=== PATIENT | male | born 1975 | race Caucasian/White ===

== ENCOUNTER 2018-02-09 20:27 | Emergency (ER) | payer BC, SELFPAY ==
[2018-02-09 20:27] VITALS: BP 115/84; PULSE 87; RESP 16; TEMP 36.2; O2SAT 97; BMI 27.9
--- NOTE | 2018-02-09 21:03 | ED.VISSUMM ---
- ER Visit Summary Date of Service: 02/09/18 Chief Complaint: Umbilical pain History of Present Illness: The patient is a 42 M who presents because of umbilical pain he experienced yesterday. He spoke to a nurse who recommended that he come to the emergency department. He denies nausea, vomiting diarrhea. He, urgency hematuria. He denies history of trauma. He presently has no complaints. Physical Examination: Vital signs are noted and unremarkable. Abdomen is soft with minimal periumbilical tenderness. He there is a small umbilical hernia which was easily reduced. There is no discoloration of the skin. Bowel sounds are present normal. There is no temporal percussion. There is no guarding or rebound tenderness. Heart is regular. Lungs are clear to auscultation. Test Results: None Emergency Department Course and Treatment: Patient was told he has a small reducible umbilical hernia. He was informed that he would be referred to a surgeon and was referred to Dr. Trenton Singh. Treatment Plan: Outpatient follow-up with surgeon and specific instructions when to return Disposition: Discharged to home Impression: Reducible umbilical hernia This note was generated with [employer] dictation software. It may contain incorrect words, spelling, and punctuation that were not noted in review of the chart prior to signing ED Disposition - Plan for ED Patient: Disposition: Home or Assisted Living Chief Complaint: Abd Pain Instructions: What Is a Hernia? Referrals: Guanaco Vargas PA [Primary Care Provider] - Trenton Jenkins MD [STAFF PHYSICIAN] - 1 Week Additional Instructions: Return if you have severe pain and unable to reduce the hernia (push the retrusion in), severe pain with nausea and vomiting or discoloration of your bellybutton.
[2018-02-09 21:26] VITALS: RESP 15
== END 2018-02-09 21:30 | disposition home or self-care (01) ==
LOC: ED 21:10
PROVIDERS: Emergency Provider Emergency Medicine; Family Provider Physician Assistant; PCP Physician Assistant
DX: K42.9 Umbilical hernia without obstruction or gangrene (principal)
CPT/HCPCS: 99282

== ENCOUNTER 2018-11-04 14:22 | Emergency (ER) | payer BC, SELFPAY ==
[2018-11-04 14:23] VITALS: BP 125/74; PULSE 96; RESP 18; TEMP 37.1; O2SAT 98; BMI 27.3
[2018-11-04 14:38] VITALS: BP 118/81; PULSE 100; RESP 12; O2SAT 96
--- NOTE | 2018-11-04 14:42 | EKG12_ITS ---
Test Reason : CP Blood Pressure : / mmHG Vent. Rate : 101 BPM Atrial Rate : 101 BPM P-R Int : 140 ms QRS Dur : 080 ms QT Int : 320 ms P-R-T Axes : 045 055 053 degrees QTc Int : 414 ms Sinus tachycardia Otherwise normal ECG Confirmed by NAVEED FISHER, MCKENNA ([id number]), visual effects editor ANNETTA MERCHANT ([id number]) on 11/06/2018 9:22:51 AM Referred By: HERNAN Confirmed By:MCKENNA LUCIO MD
--- NOTE | 2018-11-04 14:45 | RAD_ITS ---
STUDY: X-RAY CHEST REASON FOR EXAM: Male, 43 years old. Shortness of breath, chest pain, cough. TECHNIQUE: Single AP portable upright view of the chest. COMPARISON: None. FINDINGS: The lungs are clear and expanded. There is no demonstrated pleural abnormality. Normal size heart. Normal mediastinum and jacob. Normal visualized pulmonary arteries. Normal visualized aortic arch and descending thoracic aorta. There are mild degenerative changes of the visualized lower thoracic spine. Normal visualized ribs, clavicles, and shoulders. There is no demonstrated abnormality of the visualized soft tissue structures of the upper abdomen. RAD/Chest 1 View (Portable) IMPRESSION: No acute cardiopulmonary disease. Electronically Signed: Chas Pina MD at 15:24 EDT , Service support ,
[2018-11-04 14:53] VITALS: PULSE 100; RESP 18
[2018-11-04] MEDS: Ipratropium/Albuterol Sulfate 3 ML AMPUL.NEB INHALATION (14:53)
[2018-11-04 14:55] LABS: Absolute Lymphocyte Count 2.61 X10^3/ul (0.83-4.51); Absolute Neutrophil Count 6.5 X10^3/uL (2.0-7.7); Basophil# 0.02 X10^3/uL; Basophil% 0.2 % (0-1); Differential Indicated SCAN CRITERIA MET; Eosinophil# 0.73 X10^3/uL; Eosinophils% 6.4 % (0-5); Hematocrit 43.4 % (40-54); Hemoglobin 15.4 g/dl (13.0-16.5); Lymphocyte # 2.61 X10^3/ul (4.0); Mean Corp Hgb Conc 35.5 g/gl (32-36); Mean Corpuscular Hgb 29.2 pg (27.0-32.0); Mean Corpuscular Volume 82.4 fL (80-94); Mean Platelet Vol. 9.4 fl (6.2-12.0); Monocyte# 1.52 X10^3/uL; Monocyte% 13.4 % (0-10); Neutrophil # 6.48 X10^3/uL (2.7-7.7); Neutrophil % 56.9 % (47-70); POSITIVE COUNT NO; POSITIVE DIFFERENTIAL YES; POSITIVE MORPHOLOGY NO; Platelet Count 218 K/mm3 (150-450); RBC Distribution Width CV 12.6 % (11.6-14.6); RBC Distribution Width SD 37.8 fl (35.1-43.9); Red Blood Count 5.27 M/mm3 (4.6-6.2); White Blood Count 11.4 K/mm3 (4.4-11.0)
[2018-11-04 15:15] LABS: Anion Gap 5 (5-15); BUN 12 mg/dL (7-18); BUN/Creat Ratio 12.2 RATIO (10-20); Calcium,Total 8.7 mg/dL (8.5-10.1); Chloride 103 mmol/L (98-107); Creatinine, Serum 0.98 mg/dL (0.70-1.30); EST Glomerular Filtration Rate 90 mL/min (>60); Est Glom Filt Rate - Afr Amer 108 mL/min (>60); Glucose 88 mg/dL (74-106); Potassium 3.8 mmol/L (3.5-5.1); Sodium Level 138 mmol/L (136-145)
[2018-11-04 15:25] LABS: D-Dimer Quantitative (DVT/PE) 0.39 FEU/ug/m (0.27-0.49)
[2018-11-04 15:37] LABS: Differential Comment SCANNED
--- NOTE | 2018-11-04 15:44 | ED.VISSUMM ---
- ER Visit Summary Date of Service: 11/04/18 Chief Complaint: Difficulty breathing chest pain History of Present Illness: The patient is a 43 M with pleuritic right-sided chest pain for a few days he also has cough that is somewhat productive with subjective fevers. He was seen at an urgent care, he has a history of PE and was sent here for rule out. Physical Examination: Not appear in acute distress. Moist mucous membranes, no obvious facial deformity No C-spine tenderness supple neck. Regular rate and rhythm without any obvious murmurs Coarse and wheezy lungs bilaterally speaking in full sentences without any obvious respiratory distress Abdomen soft and nontender no guarding or rebound Moves all extremities without any difficulty or pain. Skin does not show any obvious rashes or lesions, no trauma. Alert oriented ?3 with no gross focal deficit Emergency Department Course and Treatment: Patient has a normal chest x-ray, however he has productive cough and fever I will err on the side of caution and start antibiotics. His d-dimer is unremarkable. I will give him an inhaler for home. No further work-up is needed Disposition: Discharge stable condition Impression: Reactive airway disease This note was generated with [employer] dictation software. It may contain incorrect words, spelling, and punctuation that were not noted in review of the chart prior to signing ED Disposition - Plan for ED Patient: Disposition: Home or Assisted Living Instructions: Acute Bronchitis Prescriptions: Albuterol IH (ProAir) [Proair Hfa (SP)Vent Pts] 1 puff INHALATION Q4H PRN PRN #1 inhaler PRN Reason: Sob &/Or Wheezing Azithromycin 250 mg PO DAILY #6 tab Referrals: Guanaco Vargas PA [Primary Care Provider] - 3-5 Days
[2018-11-04 16:11] VITALS: BP 120/76; PULSE 84; RESP 18; O2SAT 100
== END 2018-11-04 16:14 | disposition home or self-care (01) ==
PROVIDERS: Emergency Provider Emergency Medicine; Family Provider Physician Assistant; PCP Physician Assistant
DX: J45.909 Unspecified asthma, uncomplicated (principal); Z86.711 Personal history of pulmonary embolism
CPT/HCPCS: 71045; 80048; 85025; 85379; 93005; 94640; 99284; A4216

== ENCOUNTER 2020-04-03 18:21 | Emergency (ER) | payer OTHER, SELFPAY ==
[2020-04-03 18:22] VITALS: BP 120/66; PULSE 80; RESP 16; TEMP 36.4; O2SAT 99; BMI 22.9
--- NOTE | 2020-04-03 18:28 | ED.VIS.GEN ---
History of Present Illness Chief Complaint: Ear Problem Informant: Patient Onset: Today Context: Gradual Onset Timing: Continuous Current Severity: Moderate Maximum Severity: Moderate Narrative: Patient is an otherwise healthy 44-year-old male who presents to the emergency department concerned he may have ear infection. He states this morning, he woke with a dull ache in his right ear. Since then, is worsened. He denies any change in hearing. He does admit to some mild nasal congestion. He denies any fevers or chills. He states he is otherwise been in his normal state of health. He is on no daily medications. Prior similar symptoms: No Recent Illness/Hospitalization: No Past Medical History - Allergies and Home Meds Allergies/Adverse Reactions: Allergies No Known Allergies Allergy (Verified 04/03/20 18:22) Primary Care Physician: Guanaco Vargas PA [Primary Care Provider] - Prior records reviewed: Yes Past Medical History: None Surgical History: no surgical history Smoking Status: Never smoker Review of Systems General: Denies: Chills, Fever, Sweats Eyes: Denies: Visual changes - bilaterally, Diplopia ENT: Reports: Right ear pain. Denies: Rhinorrhea, Sore throat Cardiovascular: Denies: Chest pain, Palpitations Respiratory: Denies: Dyspnea, Cough, Dyspnea on exertion Gastrointestinal: Denies: Abdominal pain, Nausea, Vomiting, Diarrhea, Melena, Hematochezia Genitourinary: Denies: Dysuria, Hematuria, Frequency Musculoskeletal: Denies: Back pain, Extremity Pain Skin: Denies: Rash, Wounds Neurological: Denies: Headache, Weakness, Numbness Physical Exam Vital Signs/Narrative: Vital Signs Temp Pulse Resp BP Pulse Ox 04/03/20 18:22 97.5 F L 80 16 120/66 99 Inital Vital Signs reviewed: Yes General: Well nourished, Well developed, No Acute Distress Head: Normocephalic, Atraumatic Eyes: Perrl, EOMI ENT: Moist mucous membranes, No rhinorrhea, - - Right TM is erythematous with bulging and distortion of the landmarks. No perforation. No mastoid tenderness. Neck: Supple, Nontender Cardiovascular: Regular rate, Regular rhythm, No murmurs Respiratory: No distress, CTA bilaterally, Chest nontender Abdomen: Soft, Nontender, Nondistended, Normal bowel sounds Back: Nontender, Normal Inspection Extremities: Nontender, No edema Skin: Normal color, No rash Neurological: Alert, Oriented x3, Cranial nerves II-XII grossly intact, Normal Strength, Normal Sensation Psychological: Normal affect, Normal Mood Diagnostic/Tx/Re-eval - Medical Decision Making The patient does have evidence of an acute otitis media. There is no mastoid tenderness of perforation. Patient be treated amoxicillin. Is given his first dose here and will be continued on this. He is comfortable with this plan of care. Impression 1. Otitis media right ear without perforation ED Disposition - Plan for ED Patient: Instructions: ED Otitis Media Antibiotic Treatment Adult Prescriptions: Amoxicillin 500 mg PO TID #30 tab Prescription Printed Referrals: Guanaco Vargas PA [Primary Care Provider] -
[2020-04-03] MEDS: AMOXICILLIN 500 MG CAPSULE PO (18:36)
== END 2020-04-03 18:48 | disposition home or self-care (01) ==
LOC: ED 18:45
PROVIDERS: Emergency Provider Emergency Medicine; PCP Physician Assistant
DX: H66.91 Otitis media, unspecified, right ear (principal)
CPT/HCPCS: 99281

== ENCOUNTER 2020-11-17 20:01 | Emergency (ER) | payer OTHER, SELFPAY ==
[2020-11-17 20:01] VITALS: BP 129/66; PULSE 68; RESP 18; TEMP 36.8; O2SAT 99; BMI 25.8
--- NOTE | 2020-11-17 20:09 | CT_ITS ---
STUDY: CT ABDOMEN AND PELVIS WITHOUT CONTRAST REASON FOR EXAM: Male, 45 years old. Kidney Stone RADIATION DOSAGE (If Supplied By Facility): CTDIvol = ( 7.12 ) mGy, DLP = ( 371.80 ) mGycm TECHNIQUE: Transaxial images were obtained from the dome of the diaphragm to the symphysis pubis without oral contrast, and without intravenous contrast. Sagittal and coronal images were reconstructed. Individualized dose optimization techniques were used for this CT. COMPARISON: None. FINDINGS: The visualized lung bases are unremarkable. The visualized portions of the heart are within normal limits. Normal liver. Normal gallbladder and extrahepatic biliary system. Normal spleen. Normal pancreas. Normal bilateral adrenal glands. Mild hydronephrosis of the right kidney with a nonobstructive 3 mm proximal right ureteral stone. Up to 9 mm stones in the left kidney. Normal visualized stomach. Normal small intestine. Normal colon. The appendix is visualized and appears normal. Normal abdominal aorta. Normal inferior vena cava. Normal retroperitoneum. Normal urinary bladder. Fatty density in the inguinal canals. Small fatty umbilical hernia. Normal osseous structures. CT/Abdomen/Pelvis without Cont IMPRESSION: Right hydronephrosis with an obstructive proximal right ureteral stone noted. Nonobstructive left renal calculi. Small fatty umbilical hernia. Fatty density the the inguinal canals. Electronically Signed: Matthew Hernandez DO at 21:37 EDT Tel [phone], Service support ,
--- NOTE | 2020-11-17 20:10 | EDS_ITS ---
HPI History of Present Illness Chief Complaint: Flank Pain Narrative Narrative: Patient presents with a right flank pain that started a few hours ago while he was sitting, no recent injury. He is notices his urine being darker recently. He has no abdominal pain no radiation into the scrotum or testicle. No fever or chills. He has some nausea but no vomiting. He has no pain with twisting or bending. PFSH [facility] Medical History (Updated 11/17/20 @ 22:[address] Yuri Landin MD) Pulmonary embolism Home Medications oxycodone-acetaminophen [Percocet] 1 tab PO Q8H PRN 3 Days #10 tab 11/17/20 [Rx Last Taken Unknown] sulfamethoxazole-trimethoprim [Bactrim DS] 1 tab PO BID #14 tab 11/17/20 [Rx Last Taken Unknown] tamsulosin [Flomax] 0.4 mg PO DAILY #5 cap 11/17/20 [Rx Last Taken Unknown] Allergy/AdvReac Type Severity Reaction Status Date / Time No Known Allergies Allergy Verified 11/17/20 20:05 Surgical History (Updated 11/17/20 @ 20:33 by Eva Baldwin) History of elbow surgery Social History Smoking Status: Former smoker ROS ROS ED ROS Narrative Past medical history: None Medications: None Social history: Noncontributory Review of systems: All systems negative except as indicated General: No fever Eyes: No visual changes ENT: No upper airway congestion, normal voice Neck: No neck pain Cardiovascular: No chest pain Respiratory: No shortness of breath or cough Gastrointestinal: No abdominal pain, nausea vomiting or diarrhea Back: Back pain as in HPI Genitourinary: Dark urine as in HPI Musculoskeletal: Denies myalgias no difficulty with ambulation Skin: No rash Neurological: No memory loss, confusion or any focal weakness Hematologic: No easy bleeding or easy bruising EXAM Physical Exam Narrative Exam Narrative: Physical exam General: Patient appears uncomfortable Head: Normocephalic, Atraumatic ENT: Moist mucous membranes Neck: Supple, Nontender, No lymphadenopathy Cardiovascular: Regular rate, Regular rhythm Respiratory: No distress, CTA bilaterally Abdomen: Soft, Nontender, Nondistended Back: Tenderness over the right CVA region but I cannot reproduce it. : No tenderness in the inguinal region. Extremities: Nontender, No edema Skin: Normal color, No rash Neurological: Alert, Normal Strength, Normal Sensation Psychological: Appears slightly anxious Const Vital Signs: 11/17/20 20:01 Temperature 98.2 F Temperature Source Oral Pulse Rate 68 Respiratory Rate 18 Blood Pressure 129/66 H Blood Pressure Mean 87 Pulse Ox 99 Oxygen Delivery Method Room Air MDM MDM MDM Narrative Medical decision making narrative: Patient is found to have a proximal ureter stone. He appears well I will discharge him to follow-up with urology. Lab Data Labs: Laboratory Results - last 24 hr 11/17/20 20:15 Urine Color Yellow Urine Clarity Cloudy Urine pH 8.0 Ur Specific [place] 1.010 Urine Protein 30 H Urine Glucose (UA) Normal Urine Ketones Negative Urine Occult Blood 250 H Urine Nitrite Negative Urine Bilirubin Negative Urine Urobilinogen Normal Ur Leukocyte Esterase 25 H Urine RBC 50-100 SEEN Urine WBC 0 SEEN Ur Squamous Epith Cells 0 SEEN Amorphous Sediment 1+ Urine Bacteria 1+ Urine Mucus 0 SEEN Radiography Diagnostic Testing: Radiology Impression Abdomen/Pelvis CT 11/17/20 20:09 IMPRESSION: Right hydronephrosis with an obstructive proximal right ureteral stone noted. Nonobstructive left renal calculi. Small fatty umbilical hernia. Fatty density the the inguinal canals. Electronically Signed: Matthew Hernandez DO at 21:37 EDT Tel [phone], Service support , Discharge Plan Triage Chief Complaint: Flank Pain ED Provider: Yuri Landin Dx/Rx/DC Orders Clinical Impression: Kidney stone, Acute UTI Instructions: ED Kidney Stone w/ Colic Prescriptions: New tamsulosin [Flomax] 0.4 mg capsule 0.4 mg PO DAILY Qty: 5 RF: 0 oxycodone-acetaminophen [Percocet] 5-325 mg tablet 1 tab PO Q8H PRN (Reason: pain) 3 Days Qty: 10 RF: 0 sulfamethoxazole-trimethoprim [Bactrim DS] 800-160 mg tablet 1 tab PO BID Qty: 14 RF: 0 Primary Care Provider: Guaanco Vargas Referrals: Alek Jimenez MD [STAFF PHYSICIAN] - 2 Days Guanaco Vargas PA [Primary Care Provider] - Disposition Disposition: Home, self care
[2020-11-17 20:19] LABS: Mucous, Urine 0 SEEN /hpf (<or=2+); Squamous Epithelial Cells - UA 0 SEEN /hpf (0-5)
[2020-11-17] MEDS: 0.9% Normal Saline 1,000 ML 999 ML IV (20:19)
[2020-11-17] MEDS: Morphine 4 MG/ML Syringe IV (20:20)
[2020-11-17 20:21] LABS: Color, Urine Yellow (Yellow); Glucose, Dipstick Normal (Normal); Ketone-Dipstick Negative (Negative); Leukocyte Esterase-Dipstick 25 /ul (Negative); Nitrite-Dipstick Negative (Negative); Occult Blood-Urine 250 /ul (Negative); Protein-Dipstick 30 mg/dl (Negative); Urine Bilirubin Dipstick Negative (Negative); Urine Clarity Cloudy (Clear); Urine Urobilinogen Normal (Normal)
[2020-11-17] MEDS: Ondansetron 4 MG/2 ML Vial IV (20:21)
[2020-11-17] MEDS: Ketorolac 15 MG/ML Vial IV (20:22)
[2020-11-17 20:32] LABS: Red Blood Cells-Urine 50-100 SEEN /hpf (0-5); White Blood Cells 0 SEEN /hpf (0-5)
[2020-11-17 20:33] LABS: Amorphous Sediment 1+; Bacteria 1+ /hpf (None Seen)
[2020-11-17] MEDS: Smz/Tmp Ds Tablet 1 TABLET PO (22:38)
[2020-11-17] MEDS: oxyCODONE 5 MG Tablet PO (22:44)
[2020-11-17 22:47] VITALS: BP 118/60; PULSE 62; RESP 16; O2SAT 100
== END 2020-11-17 22:48 | disposition home or self-care (01) ==
PROVIDERS: Emergency Provider Emergency Medicine; PCP Physician Assistant
DX: N13.2 Hydronephrosis with renal and ureteral calculous obstruction (principal); N39.0 Urinary tract infection, site not specified; K42.9 Umbilical hernia without obstruction or gangrene; Z87.891 Personal history of nicotine dependence; Z86.711 Personal history of pulmonary embolism
CPT/HCPCS: 74176; 81001; 96361; 96374; 96375; 99284; J7030; J2405

== ENCOUNTER 2024-05-06 09:04 | Emergency (ER) | payer SELFPAY ==
[2024-05-06 09:04] VITALS: BP 105/72; PULSE 94; RESP 16; TEMP 36.2; O2SAT 100; BMI 25.4
--- NOTE | 2024-05-06 09:23 | VDLE_ITS ---
Reason For Study: RLE PAIN RIGHT GSV is normal. CFV is compressible, spontaneous, phasic, competent and demonstrates normal augmentation. FV is compressible, spontaneous, phasic, competent and demonstrates normal augmentation. POP V is compressible, spontaneous, phasic, competent and demonstrates normal augmentation. T/P Trunk is compressible. PTV is compressible. RT PerV is compressible. RT GASROCNEMIUS V is DILATED & NONCOMPRESSIBLE S/W ACUTE DVT. RT SSV is DILATED & NONCOMPRESSIBLE C/W ACUTE SVT. Procedure This is a venous duplex using B-mode, color flow and spectral Doppler. Exam performed portable in ED. A preliminary report was called and/or faxed to DR. WYNNE & ED @ 10:05 AM. VL/Venous Duplex US, Unilateral Interpretation Summary Acute deep vein thrombosis is noted in the right gastrocnemius vein. Acute superficial vein thrombosis is noted in the right small saphenous vein. Ordering Physician: Ham Lou Referring Physician: Barrera Vargas Performed By: Lianne Brock, RITUCS, RVT
--- NOTE | 2024-05-06 09:36 | ED.VIS.LOWEX ---
HPI History of Present Illness Chief Complaint: Lower Extremity Injury Informant: patient Narrative Narrative: 48-year-old male presenting to the emergency department with a chief complaint of right calf pain. Patient notes that last week he had discomfort behind the right knee. He states it seemed to move down towards the medial posterior calf now there is a very focal area that is tender. He denies any significant swelling. He states that he had a DVT he believes in the left leg following a trip from [place] this was about a decade ago. He is not currently on any blood thinners. [facility] Medical History Pulmonary embolism Home Medications ?Medication ?Instructions ?Recorded ?Last Taken ?Type oxycodone-acetaminophen 5 mg-325 1 tab PO Q8H PRN pain 3 days #10 11/17/20 Unknown Rx mg tablet (Percocet) tabs sulfamethoxazole 800 1 tab PO BID #14 tabs 11/17/20 Unknown Rx mg-trimethoprim 160 mg tablet (Bactrim DS) tamsulosin 0.4 mg capsule (Flomax) 0.4 mg PO DAILY #5 caps 11/17/20 Unknown Rx Allergy/AdvReac Type Severity Reaction Status Date / Time No Known Allergies Allergy Verified 05/06/24 09:05 Surgical History History of elbow surgery Social History Smoking Status: Former smoker ROS ROS ED Constitutional Constitutional ED: Denies chills or weight loss Eyes Eyes: Denies change in vision or diplopia ENT ENT ED: Denies ear pain, rhinorrhea or sore throat Cardiovascular Cardiovascular: Denies chest pain, orthopnea, palpitations or racing heartbeat Respiratory/Chest Respiratory/Chest: Denies cough, dyspnea or orthopnea Gastrointestinal Gastrointestinal: Denies abdominal pain, diarrhea, nausea or vomiting Genitourinary Genitourinary ED: Denies dysuria, hematuria or urinary frequency Musculoskeletal Musculoskeletal: Reports other Details: Calf pain ; Denies arthralgias or myalgias Integumentary Denies abscess or rash Neurologic Neurologic: Denies headache(s) or weakness Psychiatric Psychiatric: Denies anxiety, depression, suicidal ideation or suicidal thoughts Endocrine Endocrinology: Denies polydipsia, polyphagia or polyuria Allergic/Immunologic Allergic/Immunologic ED: Denies mouth swelling, tongue swelling or urticaria EXAM Physical Exam Const Vital Signs: 05/06/24 09:04 Temperature 97.2 F L Temperature Source Temporal Pulse Rate 94 Respiratory Rate 16 Blood Pressure 105/72 Blood Pressure Mean 83 Pulse Ox 100 Oxygen Delivery Method Room Air Positive well nourished and well developed General Appearance ED: well developed HEENT Reports normocephalic, head/scalp atraumatic and moist mucous membranes Eyes PERRL and EOMs intact bilaterally Neck no lymphadenopathy, supple and no JVD Resp normal respiratory effort and clear to auscultation bilaterally Cardio regular rate, regular rhythm and no murmurs GI normal to inspection, nondistended, normoactive bowel sounds and non-tender Palpation: soft Back/Spine no CVA tenderness and normal ROM Extremity Extremity Narrative: Tender to palpation over the medial posterior right calf. There is no palpable cords. No significant swelling is noted. No fullness in the popliteal fossa. Neurovascularly intact. There are no rashes. General Extremety ED: Negative for edema General Extremity: Negative for edema Neuro oriented x3 and CN's II-XII intact bilaterally Sensorium / Orientation: alert Motor Exam: strength 5/5 throughout Psych mental status grossly normal Mood & Affect: Negative for depressed or tearful Skin no rashes or lesions noted and no wounds MDM MDM MDM Narrative Medical decision making narrative: Differential diagnosis includes but not limited to DVT ruptured Andre's cyst superficial thrombosis muscle strain malignancy Duplex ultrasound which shows a right gastrocnemius vein DVT and superficial saphenous vein SVT. I spoke with the patient. Using shared decision making we reviewed our electing not to place him on full anticoagulation at this time. I am going to have him start a full-strength aspirin use heat and movement. I will set him up for a repeat ultrasound on Sunday given the . Discharge Plan Triage Chief Complaint: Lower Extremity Injury ED Provider: Ham Lou Dx/Rx/DC Orders Clinical Impression: DVT (deep venous thrombosis), Right calf pain Instructions: DVT Complications, DVT Dc Prescriptions: No Action tamsulosin [Flomax] 0.4 mg capsule 0.4 mg PO DAILY Qty: 5 0RF oxycodone-acetaminophen [Percocet] 5-325 mg tablet 1 tab PO Q8H PRN (Reason: pain) 3 Days Qty: 10 0RF sulfamethoxazole-trimethoprim [Bactrim DS] 800-160 mg tablet 1 tab PO BID Qty: 14 0RF Other Ambulatory Orders: Venous Duplex US, Unilateral (Stat) Facility: [facility] - Location: [facility] Ordered By: Dr. Ham Lou Primary Care Provider: Care Physician,No Primary Referrals: Guanaco Vargas PA [Non-Staff] - 1-2 Weeks Activity Restrictions/Additional Instructions: I would recommend a full-strength aspirin daily in addition to heat and frequent movement of the feet as discussed. Print Language: Upper Sorbian Disposition Disposition: Home, Self Care
[2024-05-06 10:55] VITALS: BP 116/77; PULSE 76; RESP 16; TEMP 36.6; O2SAT 97
== END 2024-05-06 10:56 | disposition home or self-care (01) ==
PROVIDERS: Emergency Provider Emergency Medicine; Visit Provider Emergency Medicine
DX: I82.461 Acute embolism and thrombosis of right calf muscular vein (principal); I82.811 Embolism and thrombosis of superficial veins of right lower extremity; Z87.891 Personal history of nicotine dependence; Z86.711 Personal history of pulmonary embolism; M79.661 Pain in right lower leg
CPT/HCPCS: 93971; 99282

== ENCOUNTER → 2024-05-09 | Outpatient (CLI) | payer SELFPAY ==
--- NOTE | 2024-05-09 13:54 | VDLE_ITS ---
Reason For Study: RLE DVT RIGHT LEFT GSV is normal. FV is compressible, spontaneous, phasic, CFV is compressible, spontaneous, phasic, competent and demonstrates normal competent and demonstrates normal augmentation. augmentation. FV is compressible, spontaneous, phasic, competent and demonstrates normal augmentation. POP V is compressible, spontaneous, and phasic. T/P Trunk is compressible. PTV is compressible. RT PerV is compressible. Acute deep vein thrombosis is noted in multiple Gastrocnemius Veins. It is dilated and NONCOMPRESSIBLE. SSV is patent and compressible DVT is known from prior exam. Compare to study dated 05/06/2024. Procedure This is a venous duplex using B-mode, color flow and spectral Doppler. Exam performed in department. The exam was diagnostic. VL/Venous Duplex US, Unilateral Interpretation Summary Acute deep vein thrombosis is noted in the right gastrocnemius vein. Ordering Physician: Ham Lou Referring Physician: Ham Lou Performed By: David Garcia RVT
== END | disposition home or self-care (01) ==
PROVIDERS: Referring Provider Emergency Medicine; Visit Provider Emergency Medicine
DX: M79.604 Pain in right leg (principal)
CPT/HCPCS: 93971